=== PATIENT | male | born 1985 | race Hispanic/Latino ===

== ENCOUNTER 2019-10-26 16:04 | Emergency (ER) | payer OTHER ==
[~2019-10-26] VITALS: Ht 180.3 cm; Wt 88.5 kg
[2019-10-26 16:04] VITALS: BP 155/99
[2019-10-26 16:11] VITALS: BP 155/99
[2019-10-26 16:27] VITALS: BP 155/99
--- NOTE | 2019-10-26 16:34 | ER.PDOC ---
General Chief Complaint: Medical Clearance TRAVEL OUT OF US: No Time seen by MD: 16:29 Source: other ([facility]) Exam Limitations: no limitations History of Present Illness Initial Comments Patient swallowed Methamphetamine and he is being taken to alf. He was brought here for medical clearance to go to alf. He voices no complaints. Severity: moderate Associated Symptoms: denies symptoms Past Medical History Medical History: no pertinent history Surgical History: no surgical history Social History Drug Use: Meth Review of Systems Constitutional: no symptoms reported Respiratory: no symptoms reported Cardiovascular: no symptoms reported Gastrointestinal: no symptoms reported Genitourinary: no symptoms reported All Other Systems: Reviewed and Negative Physical Exam General Appearance: No Apparent Distress, WD/WN Neck: Non-Tender, Full Range of Motion, Supple, Normal Inspection Respiratory: chest non-tender, lungs clear, normal breath sounds, no respiratory distress CVS: reg rate & rhythm, no murmur, no gallop, pulses nml, nml capillary refill, tachycardia Gastrointestinal: Normal Bowel Sounds, No Organomegaly, No Pulsatile Mass, Non Tender Back: Normal Inspection Extremities: Normal Range of Motion Neurologic/Psychiatric: meeting coordinator II-XII NML as Tested Skin: Normal Color Results/Orders Results/Orders Vital Signs Date Time Temp Pulse Resp B/P (MAP) Pulse Ox O2 Delivery O2 Flow Rate FiO2 10/26/19 16:27 98.5 101 24 155/99 (117) 98 Room Air 10/26/19 16:11 98.5 101 24 10/26/19 16:04 98.5 101 24 98 Departure Time of Disposition: 16:33 Disposition: 01 HOME, SELF-CARE Impression: Primary Impression: Methamphetamine abuse Condition: Stable Referrals: MARIAH AUGUSTE MD (PCP) PRIMARY CARE PROVIDER Additional Instructions: Patient cleared to go to alf. Duration or Time Spent with Pa: 10 min MARIAH AUGUSTE MD Oct 26, 2019 16:34
== END 2019-10-26 16:45 | disposition home or self-care (01) ==
LOC: ER 16:04
DX: F15.10 Other stimulant abuse, uncomplicated (principal)
CPT/HCPCS: 99283